=== PATIENT | male | born 1995 | race Caucasian/White ===

== ENCOUNTER 2016-07-30 18:42 | Emergency (ER) | payer OTHER ==
[~2016-07-30] VITALS: Ht 185.4 cm; Wt 81.6 kg
[~2016-07-30 18:42] MED LIST: AMOXICILLIN875 MG PO; AMOXIL500 MG PO; AUGMENTIN 500 M1 TAB PO; AZITHROMYCIN250 MG PO; BACTRIM DS 8001 TA1 PO; BACTROBAN2% TP; CLARITIN10 MG PO; CONCERTA18 MG PO; FLEXERIL5 MG PO; IBUPROFEN800 MG PO; KEFLEX 500MG.500 MG PO; MOTRIN600 M1 PO; NOMEDS; PHENERGAN VC +120 ML PO; SEPTRA DS 800 M1 TAB PO; TESSALON PERLE100 M1 PO; ZITHROMAX Z-PA250 M1 PO; ZOFRAN4 MG/5 ML PO; Zofran4 MG PO
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
[2016-07-30] MEDS ORDERED: DICLOFENAC 50MG50 MG PO (20:09)
[2016-07-30 21:24] VITALS: BP 135/91
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
== END 2016-07-30 21:25 | disposition home or self-care (01) ==
LOC: ER 18:42
DX: M94.0 Chondrocostal junction syndrome [Tietze] (principal)